=== PATIENT | female | born 2005 | race Hispanic/Latino ===

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

== ENCOUNTER 2025-02-15 14:45 | Outpatient (RCR) | payer OTHER, SELFPAY ==
--- NOTE | 2025-01-15 12:41 | OPREHPOC ---
Outpatient Therapy Plan of Care This is a Multidisciplinary Plan of Care that may contain components documented by all disciplines (PT, OT, and ST.) PT Problem 1 PT Problem #1 Knowledge Deficit PT Goal 1 Goal / Goal Update [place] with HEP Target Visit 2 PT Goal 2 Goal / Goal Update Report no pain greater than 3/10 for 2 consecutive weeks Target Visit 4 PT Problem 2 PT Problem #2 Impaired Strength PT Goal 1 Goal / Goal Update 1. Improve kelly periscapular strength to 4/5 to improve shoulder stability 2. Improve kelly shoulder flexion to 4+/5 to improve lifting stabilization. Target Visit 4
--- NOTE | 2025-01-15 12:41 | PTOPEVAL1 ---
Assessment and note entered by Gulshan Galvan, PT Evaluation Information Assessment Status Evaluation Diagnosis Myalgia M79.18 Onset 2021 Subjective Information Reports that she has had pain in her right shoulder blade for quite a while. Over the past year she has noted a significant increase in pain. She has history of fractures collar bone at 5. She plays piano and has stopped since the increased. Reports occasional radiating pain on the anterior shoulder. There are occasional hand issues with catia designer and sensation. Reports occasional headaches and migraines. No specific triggers noted. Majority of symptoms on right shoulder but she does have some bilateral pain. Reports that pain in spine feels like catching at times. Reported Pain Level Pain Score 3: Self Report Assessment PT Clinical Summary Patient presents with signs and symptoms consistent with shoulder impingement syndrome. Patient has exceptionally weak periscapular musculature and poor shoulder stability with impingement testing. Mobility is good and in some areas hyper mobile. She will benefit form skilled therapy to address shoulder strength deficits to improve stability and reduce pain with daily activity Plan of Care Interventions Electrical Stimulation,Manual Therapy,Neuro Re- education,Therapeutic Activities,Therapeutic Exercise PT Services Indicated Yes Treatment Frequency and 1x/week for 4 visits Duration These treatments will address the objective and functional deficits as defined above. The patient will be advanced safely and appropriately in order for the patient to progress towards his/her prior level of function. Additional exercises will be introduced and as well as a comprehensive home exercise program upon discharge, if needed, ?to ensure carryover of functional gains achieved in the clinic. This treatment plan has been reviewed and agreement upon by the patient.
--- NOTE | 2025-02-15 15:28 | OPREHPOC ---
Outpatient Therapy Plan of Care This is a Multidisciplinary Plan of Care that may contain components documented by all disciplines (PT, OT, and ST.) PT Problem 1 PT Problem #1 Knowledge Deficit PT Goal 1 Goal / Goal Update [place] with HEP Target Visit 2 Progress Met PT Goal 2 Goal / Goal Update Report no pain greater than 3/10 for 2 consecutive weeks Target Visit 4 Progress Partially Met PT Problem 2 PT Problem #2 Impaired Strength PT Goal 1 Goal / Goal Update 1. Improve kelly periscapular strength to 4/5 to improve shoulder stability 2. Improve kelly shoulder flexion to 4+/5 to improve lifting stabilization. Target Visit 4 Progress Partially Met
--- NOTE | 2025-02-15 15:28 | PTOPDC ---
Assessment and note entered by Gulshan Galvan, PT Evaluation Information Assessment Status Discharge Diagnosis Myalgia M79.18 Onset 2021 Subjective Information Reports that she feels that the exercises have helped her pinpoint her pain at this time but in a way has increased her tension a bit. She feels like some of the strength strengthening activity make the shoulder blade sore. Reported Pain Level Pain Score 4: Self Report Assessment PT Clinical Summary Patient has made significant improvement in mobility and strength and demonstrates a better understanding of volitional movement and need for postural strength Patient is suitable for discharge at this time. Plan of Care PT Services Indicated Yes
== END 2025-02-16 08:50 | disposition home or self-care (01) ==
LOC: ANHPT 14:45
PROVIDERS: PCP Nurse Practitioner; Visit Provider Nurse Practitioner
DX: M79.18 Myalgia, other site (principal); Z76.89 Persons encountering health services in other specified circumstances
CPT/HCPCS: 97110; 97140; 97161; 97530